=== PATIENT | female | born 1955 | race Caucasian/White ===

== ENCOUNTER 2020-05-26 15:25 | Outpatient (CLI) | payer BC, SELFPAY ==
--- NOTE | 2020-05-26 15:56 | XR_ITS ---
WS: [id number] Exam: XR hip BI m 5V wo/w pel* [id number] Date/Time of Exam: 05/26/2020 4:03 PM Reason For Exam: LOW BACK PAIN No acute fracture or dislocation. Moderate degenerative change of the joint compartments of both hips . The pattern is bilaterally symmetrical. Normal bilateral soft tissues. The pelvis is unremarkable. XR/XR hip BI m 5V wo/w pel* [id number] IMPRESSION: 1. Moderate DJD of both hips. The pattern is bilaterally symmetrical. 2. No fracture or bone destruction.
--- NOTE | 2020-05-26 15:56 | XR_ITS ---
WS: [id number] Exam: XR lumbar spine 2-3V* [id number] Date/Time of Exam: 05/26/2020 4:03 PM Reason For Exam: LOW BACK PAIN Compared to previous exam 08/15/2012 No acute fracture or dislocation. Degenerative vacuum disks noted at L4-5 and L5-S1. Facet arthropath y at all levels. Degenerative narrowing of the remaining lumbar discs. Posterior osteophytes project from the lower endplate of L2 which might indicate some spinal canal stenosis DJD of the SI joints. M ild lumbar scoliosis. XR/XR lumbar spine 2-3V* [id number] IMPRESSION: 1. Moderate degenerative changes and mild scoliosis. 2. No fracture or malalignment.
== END 2020-05-26 15:26 | disposition home or self-care (01) ==
LOC: RADWPI 15:33
PROVIDERS: PCP Family Medicine; Visit Provider Nurse Practitioner Family
DX: M41.86 Other forms of scoliosis, lumbar region (principal); M16.0 Bilateral primary osteoarthritis of hip
CPT/HCPCS: 72100; 73523

== ENCOUNTER → 2021-12-03 08:52 | Outpatient (BNVA) | payer OTHER, SELFPAY | PROVIDERS: PCP Family Medicine; Visit Provider Family Medicine | DX: Z00.00 Encounter for general adult medical examination without abnormal findings (principal); I10 Essential (primary) hypertension; M25.50 Pain in unspecified joint; K25.9 Gastric ulcer, unspecified as acute or chronic, without hemorrhage or perforation | CPT/HCPCS: 80053; 80061 ==

== ENCOUNTER → 2022-08-02 14:17 | Outpatient (BNVA) | payer MEDICARE, SELFPAY | PROVIDERS: PCP Family Medicine; Visit Provider Family Medicine | DX: J02.9 Acute pharyngitis, unspecified (principal); Z20.822 Contact with and (suspected) exposure to COVID-19 | CPT/HCPCS: 87426 ==

== ENCOUNTER 2023-04-04 15:16 | Outpatient (CLI) | payer MEDICARE, MEDICAID, SELFPAY ==
--- NOTE | 2023-04-04 15:53 | MM_ITS ---
WS: [id number] BILATERAL 3D TOMOSYNTHESIS DIGITAL SCREENING MAMMOGRAPHY WITH CAD CLINICAL INFORMATION: Z00.00 - Encounter for general adult medical examination ... HISTORY: Screening mammogram. No current complaints. COMPARISON: New baseline TECHNIQUE: Bilateral CC and MLO views. FINDINGS: Scattered fibroglandular densities bilaterally. No suspicious focal mass, asymmetry, calcifications, or architectural distortion. No evidence of malignancy. Dystrophic calcification RIGHT breast. IMPRESSION: MM/[place] [id number] BI-RADS: 2-Benign FOLLOW UP: 1 Year Follow-up Recommend return to annual screening mammography.
== END 2023-04-04 15:17 | disposition home or self-care (01) ==
LOC: RAD 15:16
PROVIDERS: PCP Family Medicine; Visit Provider Family Medicine
DX: Z12.31 Encounter for screening mammogram for malignant neoplasm of breast (principal)
CPT/HCPCS: 77063; 77067

== ENCOUNTER → 2023-08-01 14:47 | Outpatient (BNVA) | payer MEDICARE, SELFPAY | PROVIDERS: PCP Family Medicine; Visit Provider Clinical Nurse Specialist Adult Health | DX: Z13.6 Encounter for screening for cardiovascular disorders (principal); Z00.00 Encounter for general adult medical examination without abnormal findings | CPT/HCPCS: 80053; 80061; 85025 ==

== ENCOUNTER 2024-03-29 15:03 | Outpatient (CLI) | payer MEDICARE, SELFPAY ==
--- NOTE | 2024-03-29 15:06 | XRR_ITS ---
PROCEDURE INFORMATION: Exam: XR Left Wrist Exam date and time: 03/29/2024 3:29 PM Age: 69 years old Clinical indication: Injury or trauma; Fall; Blunt trauma (contusions or hematomas); Wrist; Left; Injury date: 03/28/24; Additional info: Fall/ left wrist pain TECHNIQUE: Imaging protocol: Radiologic exam of the left wrist. Views: 1 or 2 views. COMPARISON: No relevant prior studies available. FINDINGS: Bones/joints: PA and lateral views of the left wrist demonstrate no obvious acute fracture or acute subluxation deformity. Soft tissues: No soft tissue gas or radiodense foreign body. XR/XR wrist LT 2V [id number] IMPRESSION: As above.
--- NOTE | 2024-03-29 15:06 | XRR_ITS ---
PROCEDURE INFORMATION: Exam: XR Right Ribs with PA Chest Exam date and time: 03/29/2024 3:29 PM Age: 69 years old Clinical indication: Injury or trauma; Fall; Rib area; Blunt trauma (contusions or hematomas); Additional info: Rib pain TECHNIQUE: Imaging protocol: Radiologic exam of the right ribs with PA chest. Views: 3 views COMPARISON: No relevant prior studies available. FINDINGS: Lungs: No consolidation. Pleural spaces: No pleural effusion. No pneumothorax. Heart/Mediastinum: Heart size within normal range. No pulmonary vascular congestion. Bones/joints: No obvious acute fracture. Please note that nondisplaced rib fractures may not be detectable on routine radiographs. Mild thoracolumbar scoliosis is present, convex to the right at the thoracolumbar junction. XR/XR ribs RT 2V* [id number] IMPRESSION: No acute findings.
== END 2024-03-29 15:04 | disposition home or self-care (01) ==
LOC: RAD 15:04
PROVIDERS: PCP Family Medicine; Visit Provider Family Medicine
DX: R07.81 Pleurodynia (principal); M25.532 Pain in left wrist; W19.XXXA Unspecified fall, initial encounter
CPT/HCPCS: 71100; 73100

== ENCOUNTER 2024-10-31 12:28 | Outpatient (CLI) | payer MEDICARE, SELFPAY ==
[2024-10-31 13:20] LABS: Blood Urea Nitrogen 7 mg/dL (8-23); Glomerular Filtration Rate 99.7 mL/min (90-130)
--- NOTE | 2024-10-31 13:30 | CT_ITS ---
WS: [id number] CT ABDOMEN AND PELVIS WITH CONTRAST HISTORY: LLQ pain/ left flank pain/ ro diverticulitis TECHNIQUE: Imaging performed of the abdomen and pelvis with IV contrast. Single phase imaging of the abdomen. Coronal and sagittal reformats are submitted. All CT scans at [facility] use at least one of these dose optimization techniques: automated exposure control; mA and/or kV adjustment per patient size (includes targeted exams where dose is matched to clinical indication); or iterative reconstruction. IV CONTRAST: Omnipaque 350; 100 mL IV. Oral contrast: No DLP: 315.50 mGy.cm COMPARISON: None available. Lower thorax: Lung bases are clear. Heart is normal size. Small hiatal hernia. Liver/biliary system: Normal size with no intrahepatic dilatation. Gallbladder: Normal. No gallstones or wall thickening. No pericholecystic fluid. Pancreas: Normal size pancreas and pancreatic duct. No adjacent inflammation. Spleen: Normal size spleen. No mass or infarct. Adrenal glands: Normal. Right kidney: Normal. Left kidney: Normal. Aorta: Mild atherosclerosis with no aneurysm. Lymphadenopathy: None. Free fluid: None. GI tract: Nondistended stomach. No small bowel obstruction. Mild constipation. Prior appendectomy. Slight transition point in the descending colon but there is no associated mass identified. Tortuous sigmoid colon with numerous diverticula. No acute diverticulitis evident. Abdominal wall: Tiny umbilical hernia contains fat only. Pelvis: Uterus is present and midline. No free fluid or adenopathy. RIGHT inguinal hernia contains fat only. There is also a very small LEFT inguinal hernia containing fat only. Bones: Moderate degenerative disc disease at L4-5 and L5-S1. CT/CT abdomen pelvis w con* [id number] IMPRESSION: 1. Sigmoid diverticulosis. No evidence for acute diverticulitis. No abscess. 2. There is a transition point in the descending colon but no associated mass. No obstruction. 3. Prior appendectomy. 4. No ascites or adenopathy.
[2024-10-31] MEDS: iohexol 350 mg/mL 500 mL Btl (per mL) IV (13:36)
== END 2024-10-31 12:29 | disposition home or self-care (01) ==
PROVIDERS: PCP Family Medicine; Visit Provider Family Medicine
DX: R10.9 Unspecified abdominal pain (principal); K57.30 Diverticulosis of large intestine without perforation or abscess without bleeding; R93.89 Abnormal findings on diagnostic imaging of other specified body structures; Z98.890 Other specified postprocedural states; K44.9 Diaphragmatic hernia without obstruction or gangrene; I70.0 Atherosclerosis of aorta; K59.00 Constipation, unspecified; K40.20 Bilateral inguinal hernia, without obstruction or gangrene, not specified as recurrent; M51.369 Other intervertebral disc degeneration, lumbar region without mention of lumbar back pain or lower extremity pain; M51.379 Other intervertebral disc degeneration, lumbosacral region without mention of lumbar back pain or lower extremity pain
CPT/HCPCS: 74177; 82565; 84520

== ENCOUNTER → 2024-11-07 09:54 | Outpatient (BNVA) | payer MEDICARE, SELFPAY | PROVIDERS: PCP Family Medicine; Visit Provider Family Medicine | DX: R10.9 Unspecified abdominal pain (principal); R51.9 Headache, unspecified; J32.9 Chronic sinusitis, unspecified; K04.7 Periapical abscess without sinus; R07.81 Pleurodynia; M25.532 Pain in left wrist; F41.9 Anxiety disorder, unspecified; E78.5 Hyperlipidemia, unspecified; M72.0 Palmar fascial fibromatosis [Dupuytren]; R06.02 Shortness of breath; R00.0 Tachycardia, unspecified | CPT/HCPCS: 80053; 85025; 86003; 86008; 86140; 86618; 86666; 86757 ==

== ENCOUNTER → 2024-11-13 11:01 | Outpatient (BNVA) | payer MEDICARE, SELFPAY | PROVIDERS: PCP Family Medicine; Visit Provider Surgery | DX: R10.9 Unspecified abdominal pain (principal) | CPT/HCPCS: 99213 ==

== ENCOUNTER → 2024-11-16 10:49 | Outpatient (BNVA) | payer MEDICARE, SELFPAY | PROVIDERS: PCP Family Medicine; Visit Provider Family Medicine | DX: R10.9 Unspecified abdominal pain (principal) | CPT/HCPCS: 80053; 80074; 83690; 85025; 86140; 87798 ==

== ENCOUNTER → 2025-01-11 12:14 | Outpatient (BNVA) | payer MEDICARE, SELFPAY | PROVIDERS: PCP Family Medicine; Visit Provider Emergency Medicine | DX: J02.9 Acute pharyngitis, unspecified (principal) | CPT/HCPCS: 87426 ==

== ENCOUNTER 2025-04-19 11:04 | Outpatient (CLI) | payer MEDICARE, SELFPAY ==
--- NOTE | 2025-04-19 11:20 | MM_ITS ---
WS: [id number] BILATERAL SCREENING DIGITAL TOMOSYNTHESIS MAMMOGRAM WITH CAD HISTORY: screening COMPARISON: 04/04/2023 Bilateral CC and MLO views with tomosynthesis and synthetic mammography submitted. Computer aided detection analyzed. Breast composition: There are scattered areas of fibroglandular density. No suspicious masses, microcalcifications or architectural distortion. Benign calcification in the medial RIGHT breast. No suspicious masses or grouping of calcifications. MM/MM scr BI tomosynthesis [id number] IMPRESSION: BI-RADS: 2 - Benign. FOLLOW UP: 1 Year Follow-up
== END 2025-04-19 11:05 | disposition home or self-care (01) ==
LOC: RAD 11:05
PROVIDERS: PCP Family Medicine; Visit Provider Family Medicine
DX: Z12.31 Encounter for screening mammogram for malignant neoplasm of breast (principal); Z00.00 Encounter for general adult medical examination without abnormal findings; R92.323 Mammographic fibroglandular density, bilateral breasts; R92.1 Mammographic calcification found on diagnostic imaging of breast
CPT/HCPCS: 77063; 77067